=== PATIENT | female | born 1970 | race Asian ===

== ENCOUNTER 2020-09-24 05:15 | Inpatient (IN) | payer BC, MEDICAID ==
[~2020-09-24] VITALS: Ht 154.9 cm; Wt 66.8 kg
[2020-09-24] MEDS ORDERED: normal saline 1000ML IV soln IVB ONE (05:40)
[2020-09-24] MEDS ORDERED: ondansetron/PF 4mg/2ml inj IV ONE (05:40)
[2020-09-24] MEDS: morphine 4 MG/ML inj SYRINge IV PRN ×2 (05:50→07:16)
[2020-09-24 06:04] LABS: BASOPHILS % (AUTO) 0.3 % (0-1)
[2020-09-24 06:05] LABS: EOSINOPHILS # (AUTO) 0.1 X10'3 (0-0.9); EOSINOPHILS % (AUTO) 0.8 % (0-6); HEMATOCRIT 40.4 % (35.0-45.0); HEMOGLOBIN 13.1 g/dl (12.0-16.0); LYMPHOCYTES # (AUTO) 1.7 X10'3 (1.1-4.8); LYMPHOCYTES % (AUTO) 17.8 % (21-51); MEAN CORPUSCULAR HGB CONC 32.5 g/dL (33.0-36.5); MEAN CORPUSCULAR VOLUME 85.9 FL (78-98); MEAN PLATELET VOLUME 8.2 FL (7.4-10.4); MONOCYTES # (AUTO) 0.8 X10'3 (0-0.9); NEUTROPHILS # (AUTO) 6.7 X10'3 (1.8-7.7); NEUTROPHILS % (AUTO) 72.1 % (42-75); PLATELET COUNT 175 X10'3 (140-440); RED CELL DISTRIBUTION WIDTH 16.3 % (11.5-14.5); WHITE BLOOD COUNT 9.3 X10'3 (4.5-11.0)
[2020-09-24 06:16] LABS: ALANINE AMINOTRANSFERASE 64 U/L (12-78); ALBUMIN 3.7 G/DL (3.4-5.0); ALBUMIN/GLOBULIN RATIO 0.8 (1.1-1.5); ALKALINE PHOSPHATASE 83 IU/L (46-116); ANION GAP 16 (8-16); ASPARTATE AMINO TRANSFERASE 78 U/L (10-37); BILIRUBIN,TOTAL 0.5 MG/DL (0.1-1.0); BLOOD UREA NITROGEN 11 MG/DL (7-18); CALCIUM 9.6 MG/DL (8.5-10.1); CHLORIDE 102 MMOL/L (99-107); CREATININE 0.92 MG/DL (0.40-0.90); GLUCOSE 266 MG/DL (70-104); LIPASE 123 U/L (73-393); POTASSIUM 4.1 MMOL/L (3.5-5.1); SODIUM 141 MMOL/L (135-145); TOTAL CARBON DIOXIDE 23.2 MMOL/L (24-32); TOTAL PROTEIN 8.2 G/DL (6.4-8.2); eGFR 65 ML/MIN
[2020-09-24] MEDS ORDERED: acetaminophen 325mg tablet PO PRN ×2 (07:30)
[2020-09-24] MEDS ORDERED: magnesium Cl slow-release 64mg tablet PO PRN (07:30)
[2020-09-24] MEDS ORDERED: HYDROcodone/acetaminophen 5mg/325mg tablet PO PRN (07:30)
[2020-09-24] MEDS ORDERED: potassium Cl 40MEQ/1/2NS 520ml 520 ML IV PRN ×2 (07:30)
[2020-09-24] MEDS ORDERED: bisacodyl 10mg suppository rectal RC PRN (07:30)
[2020-09-24] MEDS ORDERED: potassium Cl 20 mEq SR tablet PO PRN (07:30)
[2020-09-24] MEDS ORDERED: magnesium 4gm in 100ml NS 100 ML IV PRN (07:30)
[2020-09-24] MEDS ORDERED: magnesium 2GM in 50ml NS 50 ML IV PRN (07:30)
[2020-09-24] MEDS ORDERED: mag hydrox/Alum hydrox/simeth 30ml oral suspension PO PRN (07:30)
[2020-09-24] MEDS ORDERED: magnesium hydroxide 30ml (MOM) UD suspension PO PRN (07:30)
[2020-09-24] MEDS ORDERED: morphine 2 MG/ML inj. syringe IV PRN ×2 (07:30→16:45)
[2020-09-24] MEDS ORDERED: LISI10TA4 PO (07:45)
[2020-09-24] MEDS ORDERED: METF-900 PO (07:46)
[2020-09-24] MEDS ORDERED: docusate sod 100mg capsule PO SCH (08:00)
[2020-09-24] MEDS: normal saline 1000ml 1,000 ML IV SCH ×2 (08:28→20:33)
[2020-09-24] MEDS: metroNIDAZOLE-Flagyl 500mg/NS 100 ML IV SCH ×2 (08:28→17:14)
[2020-09-24 08:31] LABS: CLARITY,URINE CLEAR (Clear); COLOR,URINE YELLOW (Yellow); GLUCOSE, URINE 500 mg/dl (Neg); KETONES,URINE 15 mg/dl (Neg); LEUKOCYTE ESTERASE ,URINE NEGATIVE (Neg); NITRITES, URINE NEGATIVE (Neg); OCCULT BLOOD,URINE NEGATIVE (Neg); PROTEIN,URINE TRACE mg/dl (Neg); UROBILINOGEN,URINE 0.2 E.U/dL (0.2-1.0)
[2020-09-24 08:33] LABS: URINE HCG NEGATIVE (NEG)
[2020-09-24 08:38] LABS: UA COLLECTION TYPE CLN CATCH MIDSTREAM
[2020-09-24 08:43] LABS: BACTERIA,URINE 1+ /HPF (Neg); MUCUS STRANDS MANY /LPF (Neg); RBC,URINE 0-2 /HPF (0-2); SQUAMOUS EPITHELIAL CELL,UR MANY /LPF (FEW); WBC,URINE 0-4 /HPF (0-4)
--- NOTE | 2020-09-24 08:53 | NUR ---
spoke to dr palafox re pt lactic 5.2, she states, she has started her on fluids ans repeat test
[2020-09-24] MEDS: ciprofloxacin lact 400MG/200ML 200 ML IV SCH ×2 (09:36→20:33)
[2020-09-24] MEDS: heparin, porcine 5000 units/ml vial SQ SCH ×2 (09:37→20:00)
--- NOTE | 2020-09-24 09:45 | NUR ---
Spoke with Dr Selby regarding patients increased pain level after receiving 1 mg IV morphine approx. [address] Selby stated that she would address it.
[2020-09-24] MEDS: K and/or MAG REPLACEMENT MC SCH ×2 (09:46→20:00)
[2020-09-24] MEDS ORDERED: HYDROmorphone inj. 0.5 MG/0.5 ML DISP.SYRIN IV PRN (10:05)
[2020-09-24] MEDS ORDERED: methylnaltrexone br 12mg/0.6ml inj***SubQ only SQ SCH (10:10)
[2020-09-24] MEDS ORDERED: HYDROmorphone 2mg tablet PO PRN (10:10)
[2020-09-24] MEDS ORDERED: dextrose ORAL solution 15 GM/59 ML bottle PO PRN ×2 (10:15)
[2020-09-24] MEDS ORDERED: MESSAGE TO PHARMACY PO ONE (10:15)
[2020-09-24] MEDS ORDERED: dextrose 50%-water 50ml dispensing syringe IV PRN ×2 (10:15)
[2020-09-24] MEDS ORDERED: glucagon, human recombinant 1mg kit SUBCUT PRN (10:15)
[2020-09-24] MEDS ORDERED: insulin Lispro (HumaLOG) vial - multi-dose SQ SCH (10:15)
[2020-09-24] MEDS ORDERED: lisinopril 10 MG tablet PO SCH (10:15)
[2020-09-24] MEDS ORDERED: pantoprazole 40mg Tablet.DR PO SCH (10:25)
[2020-09-24] MEDS ORDERED: lisinopril 10 MG tablet NG SCH (10:28)
--- NOTE | 2020-09-24 11:18 | NUR ---
SPOKE TO DR MORALES RE LACTIC 5.1 AND PO MEDICATIONS ON AN NPO DIET, DC RELISOR DUE TO CONTRAINDICATED FOR BOWEL OBSTRUCTION, SHE WILL ADDRESS MEDICATIONS
[2020-09-24] MEDS: pantoprazole 40 MG vial IV SCH (11:27)
--- NOTE | 2020-09-24 13:24 | NUR ---
Paged Dr. Selby regarding LA 5.1.
--- NOTE | 2020-09-24 13:30 | NUR ---
Dr. Selby called back and was notified regarding LA of 5.1, stated she would repeat procalcitonin and other labs. Will await orders.
[2020-09-24] MEDS: ondansetron/PF 4mg/2ml inj IV PRN (13:35)
[2020-09-24] MEDS: diatr meglu/diatrizoate 30ml oral sol.-(3 dose) bottle PO SCH ×3 (13:35→17:17)
--- NOTE | 2020-09-24 13:59 | NUR ---
Received report from Myrtle MARIE in ER. She states she will obtain BG level before pt. arrives to floor as pt. has been NPO and is diabetic. Pt. arriving on floor shortly on [place].
[2020-09-24 14:00] LABS: C-REACTIVE PROTEIN 0.71 MG/DL (0.0-0.5)
[2020-09-24 14:30] LABS: BASOPHILS % (AUTO) 0.2 % (0-1); EOSINOPHILS % (AUTO) 0.1 % (0-6); HEMATOCRIT 39.3 % (35.0-45.0); HEMOGLOBIN 12.9 g/dl (12.0-16.0); LYMPHOCYTES # (AUTO) 1.2 X10'3 (1.1-4.8); LYMPHOCYTES % (AUTO) 13.7 % (21-51); MEAN CORPUSCULAR HEMOGLOBIN 28.2 PG (27.0-31.0); MEAN CORPUSCULAR HGB CONC 32.7 g/dL (33.0-36.5); MEAN CORPUSCULAR VOLUME 86.3 FL (78-98); MEAN PLATELET VOLUME 8.2 FL (7.4-10.4); MONOCYTES # (AUTO) 0.8 X10'3 (0-0.9); MONOCYTES % (AUTO) 9.3 % (2-12); NEUTROPHILS # (AUTO) 6.5 X10'3 (1.8-7.7); NEUTROPHILS % (AUTO) 76.7 % (42-75); PLATELET COUNT 160 X10'3 (140-440); RED BLOOD COUNT 4.55 X10'6 (4.20-5.60); RED CELL DISTRIBUTION WIDTH 16.1 % (11.5-14.5); WHITE BLOOD COUNT 8.5 X10'3 (4.5-11.0)
--- NOTE | 2020-09-24 15:19 | NUR ---
Pt. arrived to floor. was on a bedside monitor. RN states she is on tele that "Bal changed the orders earlier" and that she forgot to mention it during report.
[2020-09-24] MEDS ORDERED: fentaNYL/PF 50MCG/1 ML 2ML syringe IV PRN ×2 (16:45)
[2020-09-24] MEDS ORDERED: ringers solution, lacted 1,000 ML IV SCH (16:45)
[2020-09-24] MEDS ORDERED: morphine 4 MG/ML inj SYRINge IV PRN (16:45)
[2020-09-24] MEDS ORDERED: ondansetron/PF 4mg/2ml inj IV PRN (16:45)
[2020-09-24] MEDS ORDERED: labetalol 20mg/4ml (5mg/ml) syringe IV PRN (16:45)
[2020-09-24] MEDS ORDERED: hydrALAZINE 20mg/ml inj. IV PRN (16:45)
[2020-09-24] MEDS ORDERED: iohexol 300mg/ml 100ml inj. ONE (16:54)
[2020-09-24] MEDS: hyDRALAzine 10mg tablet PO SCH (17:17)
--- NOTE | 2020-09-24 17:58 | NUR ---
UDATED DR LOWRY, HE IS AWARE CT SCAN COMPLETED
--- NOTE | 2020-09-24 19:08 | NUR ---
Sent msg to Dr. Willingham for Hydralazine 10mg IV instead of PO as patient is NOPO.
--- NOTE | 2020-09-24 19:45 | NUR ---
PHONE REPORT TO FRANK SKINNER PCU. TUBER HELPERFRANK LAUREANO IS TAKING PATIENT IN [facility] MONITORED TO ROOM 3022A WITH ALL BELONGINGS
[2020-09-24] MEDS: docusate sodium 100mg/10ml UD cup PO SCH (20:00)
[2020-09-24] MEDS: insulin glargine (Lantus) pen - multi-dose SQ SCH (20:36)
[2020-09-24] MEDS ORDERED: temazepam 15mg capsule PO PRN (21:00)
--- NOTE | 2020-09-24 21:15 | NUR ---
DR LOWRY IN TO SEE PT. PT STATES SHE IS FEELING BETTER. DR GUERRERO STATES THAT THEY WILL HOLD OFF SURGERY TONIGHT AND DO A REPEAT CT SCAN TOMORROW TO REEVALUATE. NG IS SET TO LOW INTERMITTENT SUCTION. PT IS TALKING ON THE PHONE TO FAMILY WITH NO S/S OF DISTRESS.
[2020-09-24 22:00] VITALS: BP 135/74
[2020-09-25] MEDS: metroNIDAZOLE-Flagyl 500mg/NS 100 ML IV SCH ×4 (00:01→23:31)
[2020-09-25 03:01] VITALS: BP 128/77
--- NOTE | 2020-09-25 03:01 | NUR ---
PTT AT 0020, 84. HEPARIN ON HOLD FOR 1 HR. REDUCED TO 17UNITS / HR. AND NEW PTT ORDERED FOR [id number].
--- NOTE | 2020-09-25 06:44 | NUR ---
REPORT GIVEN TO FRANK RODRIGUEZ.
--- NOTE | 2020-09-25 06:45 | NUR ---
Patient in room PCU 3022. I have received report from Raven MARIE and had the opportunity to ask questions and assume patient care.
[2020-09-25 07:00] VITALS: BP 122/67
[2020-09-25 07:08] LABS: BASOPHILS % (AUTO) 0.5 % (0-1); EOSINOPHILS # (AUTO) 0.1 X10'3 (0-0.9); HEMOGLOBIN 10.4 g/dl (12.0-16.0); LYMPHOCYTES # (AUTO) 1.8 X10'3 (1.1-4.8); LYMPHOCYTES % (AUTO) 32.5 % (21-51); MEAN CORPUSCULAR HEMOGLOBIN 28.5 PG (27.0-31.0); MEAN CORPUSCULAR HGB CONC 33.5 g/dL (33.0-36.5); MEAN PLATELET VOLUME 9.2 FL (7.4-10.4); MONOCYTES # (AUTO) 0.7 X10'3 (0-0.9); MONOCYTES % (AUTO) 12.4 % (2-12); NEUTROPHILS # (AUTO) 2.9 X10'3 (1.8-7.7); NEUTROPHILS % (AUTO) 52.6 % (42-75); PLATELET COUNT 132 X10'3 (140-440); RED BLOOD COUNT 3.65 X10'6 (4.20-5.60); WHITE BLOOD COUNT 5.4 X10'3 (4.5-11.0)
[2020-09-25 07:17] LABS: ALANINE AMINOTRANSFERASE 42 U/L (12-78); ALBUMIN 2.6 G/DL (3.4-5.0); ALBUMIN/GLOBULIN RATIO 0.8 (1.1-1.5); ALKALINE PHOSPHATASE 64 IU/L (46-116); ANION GAP 10 (8-16); ASPARTATE AMINO TRANSFERASE 48 U/L (10-37); BILIRUBIN,TOTAL 0.6 MG/DL (0.1-1.0); BLOOD UREA NITROGEN 7 MG/DL (7-18); BUN/CREATININE RATIO 10.6 (6.6-38.0); CALCIUM 7.6 MG/DL (8.5-10.1); CHLORIDE 106 MMOL/L (99-107); CREATININE 0.66 MG/DL (0.40-0.90); GLUCOSE 144 MG/DL (70-104); MAGNESIUM 1.9 MG/DL (1.5-2.4); POTASSIUM 3.4 MMOL/L (3.5-5.1); SODIUM 140 MMOL/L (135-145); TOTAL CARBON DIOXIDE 24.4 MMOL/L (24-32); eGFR > 90 ML/MIN
[2020-09-25] MEDS: pantoprazole 40 MG vial IV SCH (07:31)
[2020-09-25] MEDS: lisinopril 10 MG tablet PO SCH (07:35)
[2020-09-25] MEDS: hyDRALAzine 10mg tablet PO SCH ×4 (07:35→23:31)
[2020-09-25] MEDS: docusate sodium 100mg/10ml UD cup PO SCH ×2 (07:35→20:00)
[2020-09-25] MEDS: heparin, porcine 5000 units/ml vial SQ SCH ×2 (07:36→20:45)
--- NOTE | 2020-09-25 07:36 | NUR ---
Heparin SQ dose this am held just in case the doctor decided to do order repeat CT scan of abdomen today and apparently need surgery. to prevent delay
[2020-09-25] MEDS: K and/or MAG REPLACEMENT MC SCH ×2 (08:00→20:56)
[2020-09-25] MEDS: ciprofloxacin lact 400MG/200ML 200 ML IV SCH ×2 (09:16→20:46)
[2020-09-25] MEDS: normal saline 1000ml 1,000 ML IV SCH ×3 (09:17→23:30)
[2020-09-25 11:00] VITALS: BP 136/86
--- NOTE | 2020-09-25 11:25 | NUR ---
Clamp NGT as per MD order. Instructed patient to call me if she is feeling too nauseous or abdominal discomfort while NGT is clamped.
--- NOTE | 2020-09-25 11:34 | NUR ---
TC RECEIVED FROM DR. LOWRY REGARDING CT SCAN. REPORT FROM PRIMARY RN STATES THAT THE PATIENT IS PASSING GAS. DR. LOWRY STATED THAT NO NEED FOR REPEAT CT AT THIS TIME.
--- NOTE | 2020-09-25 13:38 | NUR ---
DM consult, Hgb A1c 7.2%, needs written DM education handout with verbal review. Pt has h/o colon cancer and is s/p large bowel resection after found to have SBO. NPO. Will provide DM education prior to discharge. Addendum: 09/25/20 at [address] Amended: Links added.
[2020-09-25 15:00] VITALS: BP 137/77
--- NOTE | 2020-09-25 17:08 | NUR ---
Discontinued NGT as per order. There was barely has output after the tube hooked back to suction. Patient tolerated the procedure
[2020-09-25 18:00] VITALS: BP 169/88
--- NOTE | 2020-09-25 18:29 | NUR ---
Problems reprioritized. Patient report given, questions answered & plan of care reviewed with Kristen MARIE.
--- NOTE | 2020-09-25 18:30 | NUR ---
Patient in room PCU 3022. I have received report from FRANK Day and had the opportunity to ask questions and assume patient care.
[2020-09-25] MEDS: potassium Cl 20 mEq SR tablet PO PRN (20:51)
[2020-09-25] MEDS: insulin glargine (Lantus) pen - multi-dose SQ SCH (21:00)
[2020-09-25 22:00] VITALS: BP 149/80
[2020-09-26 02:00] VITALS: BP 126/59
[2020-09-26 06:20] LABS: BASOPHILS % (AUTO) 0.9 % (0-1); EOSINOPHILS # (AUTO) 0.1 X10'3 (0-0.9); EOSINOPHILS % (AUTO) 3.1 % (0-6); HEMATOCRIT 31.5 % (35.0-45.0); HEMOGLOBIN 10.3 g/dl (12.0-16.0); LYMPHOCYTES # (AUTO) 1.6 X10'3 (1.1-4.8); LYMPHOCYTES % (AUTO) 43.6 % (21-51); MEAN CORPUSCULAR HEMOGLOBIN 28.1 PG (27.0-31.0); MEAN CORPUSCULAR HGB CONC 32.8 g/dL (33.0-36.5); MEAN CORPUSCULAR VOLUME 85.4 FL (78-98); MEAN PLATELET VOLUME 8.2 FL (7.4-10.4); MONOCYTES # (AUTO) 0.6 X10'3 (0-0.9); MONOCYTES % (AUTO) 16.4 % (2-12); NEUTROPHILS # (AUTO) 1.3 X10'3 (1.8-7.7); PLATELET COUNT 143 X10'3 (140-440); RED BLOOD COUNT 3.69 X10'6 (4.20-5.60); RED CELL DISTRIBUTION WIDTH 15.7 % (11.5-14.5); WHITE BLOOD COUNT 3.7 X10'3 (4.5-11.0)
[2020-09-26 06:36] LABS: ALANINE AMINOTRANSFERASE 48 U/L (12-78); ALBUMIN 2.6 G/DL (3.4-5.0); ALBUMIN/GLOBULIN RATIO 0.7 (1.1-1.5); ALKALINE PHOSPHATASE 65 IU/L (46-116); ANION GAP 10 (8-16); ASPARTATE AMINO TRANSFERASE 56 U/L (10-37); BILIRUBIN,TOTAL 0.5 MG/DL (0.1-1.0); BLOOD UREA NITROGEN 5 MG/DL (7-18); BUN/CREATININE RATIO 8.8 (6.6-38.0); CALCIUM 7.8 MG/DL (8.5-10.1); CHLORIDE 108 MMOL/L (99-107); CREATININE 0.57 MG/DL (0.40-0.90); GLUCOSE 140 MG/DL (70-104); POTASSIUM 3.4 MMOL/L (3.5-5.1); SODIUM 143 MMOL/L (135-145); TOTAL CARBON DIOXIDE 24.6 MMOL/L (24-32); TOTAL PROTEIN 6.1 G/DL (6.4-8.2); eGFR > 90 ML/MIN
--- NOTE | 2020-09-26 06:39 | NUR ---
Problems reprioritized. Patient report given, questions answered & plan of care reviewed with FRANK Macedo.
[2020-09-26 07:14] VITALS: BP 127/64
[2020-09-26] MEDS: docusate sodium 100mg/10ml UD cup PO SCH (07:36)
[2020-09-26] MEDS: hyDRALAzine 10mg tablet PO SCH ×2 (07:36→15:27)
[2020-09-26] MEDS: metroNIDAZOLE-Flagyl 500mg/NS 100 ML IV SCH ×2 (07:36→15:26)
[2020-09-26] MEDS: potassium Cl 20 mEq SR tablet PO PRN ×3 (07:38→16:17)
[2020-09-26] MEDS: heparin, porcine 5000 units/ml vial SQ SCH ×2 (07:39→20:17)
[2020-09-26] MEDS: K and/or MAG REPLACEMENT MC SCH (07:39)
[2020-09-26] MEDS: pantoprazole 40 MG vial IV SCH (07:39)
[2020-09-26] MEDS: ondansetron/PF 4mg/2ml inj IV PRN (07:52)
[2020-09-26 09:07] VITALS: BP 129/74
[2020-09-26] MEDS: ciprofloxacin lact 400MG/200ML 200 ML IV SCH ×2 (09:08→20:17)
[2020-09-26] MEDS: lisinopril 10 MG tablet PO SCH (09:08)
[2020-09-26 11:40] LABS: HYPOCHROMASIA 1+; PLATELET ESTIMATE NORMAL; TOTAL CELLS COUNTED 100
[2020-09-26 11:41] LABS: SMUDGE CELLS FEW; STOMATOCYTES FEW; TEAR DROP CELLS FEW
--- NOTE | 2020-09-26 12:00 | NUR ---
Notified MD about elevated AST/ ALT. No new orders at this time.
[2020-09-26] MEDS: normal saline 1000ml 1,000 ML IV SCH (12:09)
[2020-09-26 12:24] VITALS: BP 145/81
[2020-09-26 16:10] VITALS: BP 140/87
--- NOTE | 2020-09-26 16:44 | NUR ---
DM consult re: "new diabetic" per consult. Visited pt at bed side for written and verbal DM education. Per ED notes, pt has history of type 2 DM and is taking metformin at home. Spoke to pt about A1c level of 7.2%, pt denies knowing hx of diabetes and denies taking any medications for DM. Encouraged pt to discuss diabetes with MD. D/w pt about normal A1C level and ways to control blood glucose. Explained the benefits of staying hydrated, increasing protein intake and eating non-starchy fruits and vegetables, and gave examples of portion sizes. Pt reports upset stomach with no appetite and altered sense of taste. Obtained pt food preference, pt reports disliking sweets and [place] food. Pt reports at home only eats breakfast and dinner, and skips snacks and lunch. Encouraged pt to eat small frequent meals to help manage blood glucose. Pt is attentive and showed interest by reading written DM education. Addendum: 09/26/20 at [address] by [address] Amended: Links added. Addendum: 09/26/20 at [address] I have reviewed and agree with note by Installment Agent. Tiffanie Santoyo RD
[2020-09-26 18:00] VITALS: BP 140/75
--- NOTE | 2020-09-26 18:21 | NUR ---
Gave report to Kristen MARIE.
[2020-09-27 02:00] VITALS: BP 116/65
[2020-09-27 06:00] VITALS: BP 143/74
[2020-09-27 06:14] LABS: EOSINOPHILS # (AUTO) 0.1 X10'3 (0-0.9); LYMPHOCYTES # (AUTO) 1.4 X10'3 (1.1-4.8); MEAN CORPUSCULAR HEMOGLOBIN 28.1 PG (27.0-31.0); MEAN PLATELET VOLUME 8.2 FL (7.4-10.4); MONOCYTES # (AUTO) 0.7 X10'3 (0-0.9); NEUTROPHILS # (AUTO) 1.1 X10'3 (1.8-7.7); NEUTROPHILS % (AUTO) 33.1 % (42-75); RED BLOOD COUNT 3.75 X10'6 (4.20-5.60)
[2020-09-27 06:16] LABS: EOSINOPHILS % (AUTO) 3.9 % (0-6); HEMATOCRIT 31.9 % (35.0-45.0); HEMOGLOBIN 10.6 g/dl (12.0-16.0); MEAN CORPUSCULAR HGB CONC 33.2 g/dL (33.0-36.5); MEAN CORPUSCULAR VOLUME 84.9 FL (78-98); PLATELET COUNT 172 X10'3 (140-440); RED CELL DISTRIBUTION WIDTH 15.7 % (11.5-14.5); WHITE BLOOD COUNT 3.4 X10'3 (4.5-11.0)
--- NOTE | 2020-09-27 06:23 | NUR ---
Problems reprioritized. Patient report given, questions answered & plan of care reviewed with FRANK Tovar.
[2020-09-27 06:34] LABS: ALANINE AMINOTRANSFERASE 61 U/L (12-78); ALBUMIN 2.9 G/DL (3.4-5.0); ALBUMIN/GLOBULIN RATIO 0.8 (1.1-1.5); ALKALINE PHOSPHATASE 83 IU/L (46-116); ANION GAP 10 (8-16); ASPARTATE AMINO TRANSFERASE 82 U/L (10-37); BILIRUBIN,TOTAL 0.4 MG/DL (0.1-1.0); BLOOD UREA NITROGEN 6 MG/DL (7-18); BUN/CREATININE RATIO 8.5 (6.6-38.0); CALCIUM 8.6 MG/DL (8.5-10.1); CHLORIDE 107 MMOL/L (99-107); CREATININE 0.71 MG/DL (0.40-0.90); GLUCOSE 187 MG/DL (70-104); POTASSIUM 3.8 MMOL/L (3.5-5.1); SODIUM 141 MMOL/L (135-145); TOTAL CARBON DIOXIDE 23.7 MMOL/L (24-32); TOTAL PROTEIN 6.7 G/DL (6.4-8.2); eGFR 87 ML/MIN
[2020-09-27] MEDS: docusate sodium 100mg/10ml UD cup PO SCH (07:36)
[2020-09-27] MEDS: metroNIDAZOLE-Flagyl 500mg/NS 100 ML IV SCH ×2 (07:36→07:47)
[2020-09-27] MEDS: pantoprazole 40 MG vial IV SCH (07:37)
[2020-09-27] MEDS: heparin, porcine 5000 units/ml vial SQ SCH (07:38)
[2020-09-27] MEDS: lisinopril 10 MG tablet PO SCH (07:39)
[2020-09-27] MEDS: hyDRALAzine 10mg tablet PO SCH (07:39)
[2020-09-27 07:55] LABS: PLATELET ESTIMATE NORMAL; TOTAL CELLS COUNTED 100
[2020-09-27 11:00] VITALS: BP 151/78
== END 2020-09-27 12:20 | disposition home or self-care (01) | DRG 389 ==
LOC: ER 05:16 → ED HOLD 07:26 → SUR 3N 14:26 → ED HOLD 15:29 → PCU 3S 19:50
PROVIDERS: ADMIT Internal Medicine; ATTEND Internal Medicine
PROC: 0D9670Z Drainage of Stomach with Drainage Device, Via Natural or Artificial Opening (ICD-10-PCS; principal; 2020-09-24)
PROC: BW211ZZ Computerized Tomography (CT Scan) of Abdomen and Pelvis using Low Osmolar Contrast (ICD-10-PCS; 2020-09-24)
DX: K56.609 Unspecified intestinal obstruction, unspecified as to partial versus complete obstruction (principal); C18.9 Malignant neoplasm of colon, unspecified; D64.9 Anemia, unspecified; I10 Essential (primary) hypertension; E11.65 Type 2 diabetes mellitus with hyperglycemia; R74.8 Abnormal levels of other serum enzymes; Z90.49 Acquired absence of other specified parts of digestive tract; E87.6 Hypokalemia
CPT/HCPCS: 36415; 71045; 74176; 74177; 80053; 81001; 81025; 82378; 82948; 83036; 83605; 83690; 83735; 84145; 85007; 85025; 85651; 86140; 86301; 87040; 87081; 96374; 97161; 97530; 99285; C9113; G0378; J0744; J1170; J1644; J1815; J2270; J2405; J3490; J7030; Q9963; Q9967